=== PATIENT | female | born 2000 ===

== ENCOUNTER 2018-09-08 16:02 | Emergency (ER) | payer MEDICAID ==
[2018-09-08 16:26] VITALS: RESP 18; TEMP 98.8
--- NOTE | 2018-09-08 17:22 | C.PDOC ---
History Of Present Illness 18 year old female presents to the ER with a complaint of left dental pain that began yesterday. Patient has taken nothing for the pain. Denies difficulty breathing, difficulty swallowing, or fever. Time Seen by Provider: 09/08/18 16:58 Chief Complaint (Nursing): Dental Pain History Per: Patient History/Exam Limitations: no limitations Onset/Duration Of Symptoms: Days Current Symptoms Are (Timing): Still Present Recent travel outside of the [place]: No Past Medical History Reviewed: Historical Data, Nursing Documentation, Vital Signs Vital Signs: Last Vital Signs Temp 98.8 F 09/08/18 16:24 Pulse 64 09/08/18 16:24 Resp 18 09/08/18 16:24 BP 105/60 09/08/18 16:24 Pulse Ox 100 09/08/18 16:24 Family History: States: Unknown Family Hx - Social History Hx Alcohol Use: Yes Hx Substance Use: No - Immunization History Hx Tetanus Toxoid Vaccination: No Hx Influenza Vaccination: No Hx Pneumococcal Vaccination: No Review Of Systems Constitutional: Negative for: Fever ENT: Positive for: Mouth Pain. Negative for: Other (Difficulty swallowing) Respiratory: Negative for: Other (Difficulty breathing) Physical Exam - Physical Exam Appears: Non-toxic, No Acute Distress Skin: Normal Color, Warm, Dry Head: Atraumatic, Normacephalic Eye(s): bilateral: Normal Inspection, EOMI Ear(s): Bilateral: Normal Nose: Normal Oral Mucosa: Moist Tongue: Normal Appearing Lips: Normal Appearing Teeth: Caries (Large to left maxillary molar), Tender To Palpation (Left maxillary molar) Gingiva: Other (Swelling and tenderness surrounding left maxillary molar) Throat: Normal, No Erythema, No Exudate Neck: Normal, Supple Chest: Symmetrical Cardiovascular: Rhythm Regular Respiratory: Normal Breath Sounds, No Accessory Muscle Use Extremity: Normal ROM Neurological/Psych: Oriented x3, Normal Speech ED Course And Treatment O2 Sat by Pulse Oximetry: 100 (Room air) Pulse Ox Interpretation: Normal Progress Note: Motrin administered. Patient is resting comfortably in the ER in no acute distress,vitals are stable, patient started on amoxicillin and advised to follow up with dentist for further evaluation. Disposition - Disposition Referrals: [facility] [Outside] Disposition: HOME/ ROUTINE Disposition Time: 17:19 Condition: STABLE Additional Instructions: Follow up with the dentist tomorrow. Take medications as prescribed. Return to the emergency department at any time if symptoms persist or worsen. Prescriptions: Amoxicillin 875 mg PO BID #14 tablet Naproxen [Naprosyn] 1 tab PO BID PRN #20 tab PRN Reason: Pain Instructions: Dental Pain (DC) Forms: [employer] (Tuvaluan) - Clinical Impression Clinical Impression: Pain, dental - PA / IT PROGRAM MANAGER / Resident Statement MD/DO has reviewed & agrees with the documentation as recorded. - Scribe Statement The provider has reviewed the documentation as recorded by the Scribe Gonzales Stallworth All medical record entries made by the Elleibbentley were at my direction and personally dictated by me. I have reviewed the chart and agree that the record accurately reflects my personal performance of the history, physical exam, medical decision making, and the department course for this patient. I have also personally directed, reviewed, and agree with the discharge instructions and disposition.
[2018-09-08 17:53] VITALS: BP 111/73; PULSE 72
[2018-09-08 21:58] VITALS: O2SAT 100
== END 2018-09-08 17:53 | disposition home or self-care (01) ==
LOC: C.ER 16:02
DX: K08.89 Other specified disorders of teeth and supporting structures (principal)